=== PATIENT | male | born 1985 | race Caucasian/White ===

== ENCOUNTER 2017-02-20 11:59 | Emergency (ER) | payer OTHER ==
[~2017-02-20] VITALS: Ht 182.9 cm; Wt 101.4 kg
[2017-02-20 12:22] VITALS: BP 133/77; PULSE 110; RESP 20; TEMP 100.3; O2SAT 97
[2017-02-20 13:16] VITALS: TEMP 102.8
[2017-02-20 13:40] VITALS: BP 146/76; PULSE 108; RESP 16; O2SAT 95
--- NOTE | 2017-02-20 13:43 | PD ---
HPI Chief Complaint: Lump, Cyst, Hernia Time Seen by Provider: 13:25 Travel History International Travel<30 days: No Contact w/Intl Traveler<30days: No Traveled to known affect area: No History of Present Illness HPI 3 DAYS NOTED A RIGHT THIGH LUMP, WORSENING, MORE PAINFUL AND LARGER SIZE, 8/10, NONRAD, SOME REDNESS TO SKIN OVER IT....DENIES FEVER/N/V/D/CP/KUMARI/MYALGIA...also denies any injury to area PCP sarkis HAUSER DENIES PMHX PFSH Past Medical History Medical History: Denies Significant Hx Immunizations Current: Yes Influenza Vaccination: No Past Surgical History Surgical History: No Previous Surgery Social History Alcohol Use: Yes (ALMOST DAILY WHISKEY) Tobacco Use: No (NEVER) Substance Use: No Allergies-Medications (Allergen,Severity, Reaction): Coded Allergies: No Known Allergies (Unverified , 02/20/17) Reported Meds & Prescriptions Reported Meds & Active Scripts Active No Active Prescriptions or Reported Medications Review of Systems Except as stated in HPI: all other systems reviewed are Neg General / Constitutional: No: Fever Eyes: No: Visual changes HENT: No: Headaches Cardiovascular: No: Chest Pain or Discomfort Respiratory: No: Shortness of Breath Gastrointestinal: No: Abdominal Pain Genitourinary: No: Dysuria Musculoskeletal: No: Pain Skin: Positive Lumps Neurologic: No: Weakness Psychiatric: No: Depression Endocrine: No: Polydipsia Hematologic/Lymphatic: No: Easy Bruising Physical Exam Narrative GENERAL: SKIN: Warm and dry. HEAD: Atraumatic. Normocephalic. EYES: Pupils equal and round. No scleral icterus. No injection or drainage. ENT: No nasal bleeding or discharge. Mucous membranes pink and moist. NECK: Trachea midline. No JVD. CARDIOVASCULAR: Regular rate and rhythm. RESPIRATORY: No accessory muscle use. Clear to auscultation. Breath sounds equal bilaterally. GASTROINTESTINAL: Abdomen soft, non-tender, nondistended. MUSCULOSKELETAL: Extremities without clubbing, cyanosis, or edema. No obvious deformities. palpable mass 6x3cm, firm, indurated, nonfluctuant south of right femoral triangle, nonpulsatile NEUROLOGICAL: Awake and alert. No obvious cranial nerve deficits. Motor grossly within normal limits. Five out of 5 muscle strength in the arms and legs. Normal speech. PSYCHIATRIC: Appropriate mood and affect; insight and judgment normal. Data Data Last Documented VS Vital Signs Date Time Temp Pulse Resp B/P (MAP) Pulse Ox O2 Delivery O2 Flow Rate FiO2 02/20/17 14:45 102.0 98 16 151/83 (105) 97 Room Air Orders Orders Complete Blood Count With Diff (02/20/17 13:31) Comprehensive Metabolic Panel (02/20/17 13:31) Blood Culture (02/20/17 13:31) Westergren Sedimentation Rate (02/20/17 13:31) Lactic Acid Sepsis Protocol (02/20/17 13:31) Clindamycin 900 Mg Premix (Cleocin 900 M (02/20/17 13:45) Sodium Chlor 0.9% 1000 Ml Inj (Ns 1000 M (02/20/17 13:45) Ct Femur W Iv Contrast (02/20/17 ) Iohexol 350 Inj (Omnipaque 350 Inj) (02/20/17 14:21) Ibuprofen (Motrin) (02/20/17 14:45) Labs Laboratory Tests Test 02/20/17 13:35 White Blood Count 8.4 TH/MM3 Red Blood Count 5.08 MIL/MM3 Hemoglobin 14.0 GM/DL Hematocrit 42.1 % Mean Corpuscular Volume 82.9 FL Mean Corpuscular Hemoglobin 27.5 PG Mean Corpuscular Hemoglobin Concent 33.2 % Red Cell Distribution Width 12.8 % Platelet Count 170 TH/MM3 Mean Platelet Volume 8.2 FL Neutrophils (%) (Auto) 70.6 % Lymphocytes (%) (Auto) 16.4 % Monocytes (%) (Auto) 11.3 % Eosinophils (%) (Auto) 1.4 % Basophils (%) (Auto) 0.3 % Neutrophils # (Auto) 6.0 TH/MM3 Lymphocytes # (Auto) 1.4 TH/MM3 Monocytes # (Auto) 0.9 TH/MM3 Eosinophils # (Auto) 0.1 TH/MM3 Basophils # (Auto) 0.0 TH/MM3 CBC Comment DIFF FINAL Differential Comment Erythrocyte Sedimentation Rate 10 mm/hr Blood Urea Nitrogen 10 MG/DL Creatinine 0.94 MG/DL Random Glucose 81 MG/DL Total Protein 7.6 GM/DL Albumin 3.8 GM/DL Calcium Level 8.6 MG/DL Alkaline Phosphatase 96 U/L Aspartate Amino Transf (AST/SGOT) 35 U/L Alanine Aminotransferase (ALT/SGPT) 65 U/L Total Bilirubin 0.7 MG/DL Sodium Level 131 MEQ/L Potassium Level 4.1 MEQ/L Chloride Level 97 MEQ/L Carbon Dioxide Level 27.8 MEQ/L Anion Gap 6 MEQ/L Estimat Glomerular Filtration Rate 94 ML/MIN Lactic Acid Level 1.1 mmol/L MDM Medical Decision Making Medical Screen Exam Complete: Yes Emergency Medical Condition: Yes Medical Record Reviewed: Yes Differential Diagnosis abscess v pseudoaneurysm v cellulitis v lymphoma Narrative Course no leukocytosis, but pt was febrile, ct does not show any vascular involvement and appears to be most consistent with an enlarged lymph node...advised patient will give abx but will need follow up and possibly a needle or formal biopsy by [facility] Diagnosis Primary Impression: right thigh mass Patient Instructions: General Instructions, Soft Tissue Mass (ED) Additional Instructions: please make followup with [facility] to further investigate this mass in your thigh, about 4.5cm in size, not involving your artery or vein at this point but has smaller lymph nodes enlarged. most consistent with a lymph node and will need further investigation to ensure it is not lymphoma. in the mean time you will be treated with antibiotic to see if it is related to infection. Scripts Tramadol (Ultram) 50 Mg Tab 50 MG PO Q6H Y for PAIN, #12 TAB 0 Refills Prov: Christopher Myers MD 02/20/17 Amoxicillin-Clavulanate (Augmentin) 875-125 Mg Tab 1 TAB PO BID for Infection for 10 Days, #20 TAB 0 Refills Prov: Christopher Myers MD 02/20/17 Disposition: 01 DISCHARGE HOME Condition: Stable Christopher Myers MD Feb 20, 2017 13:43
[2017-02-20] MEDS ORDERED: SODIUM CHLOR 0.9% 1000 ML INJ 1,000 ML IV ONE (13:45)
[2017-02-20] MEDS ORDERED: CLINDAMYCIN 900 MG PREMIX 50 ML IV ONE (13:45)
[2017-02-20 13:55] LABS: BASOPHIL % 0.3 % (0.0-2.0); EOSINOPHIL # 0.1 TH/MM3 (0-0.4); EOSINOPHIL % 1.4 % (0.0-4.0); HEMATOCRIT 42.1 % (39.0-51.0); HEMO FLAGS DIFF FINAL; LYMPH % 16.4 % (9.0-44.0); LYMPHOCYTE # 1.4 TH/MM3 (1.0-4.8); MEAN CELL VOLUME 82.9 FL (80.0-100.0); MEAN CORPUSCULAR HEMOGLOBIN 27.5 PG (27.0-34.0); MEAN CORPUSCULAR HGB CONC 33.2 % (32.0-36.0); MONO % 11.3 % (0.0-8.0); NEUT % 70.6 % (16.0-70.0); PLATELET COUNT 170 TH/MM3 (150-450); RED BLOOD COUNT 5.08 MIL/MM3 (4.50-5.90); RED CELL DISTRIBUTION WIDTH 12.8 % (11.6-17.2); WHITE BLOOD COUNT 8.4 TH/MM3 (4.0-11.0)
[2017-02-20 14:14] LABS: CHLORIDE 97 MEQ/L (98-107); POTASSIUM 4.1 MEQ/L (3.5-5.1); SODIUM (NA) 131 MEQ/L (136-145)
[2017-02-20 14:17] LABS: ANION GAP 6 MEQ/L (5-15); BICARBONATE 27.8 MEQ/L (21.0-32.0); BLOOD UREA NITROGEN 10 MG/DL (7-18)
[2017-02-20 14:20] LABS: ALT (GPT) 65 U/L (12-78); AST (GOT) 35 U/L (15-37)
[2017-02-20 14:21] LABS: GLOMERULAR FILTRATION RATE 94 ML/MIN (>89)
[2017-02-20] MEDS ORDERED: IOHEXOL 350 MG/ML 10 ML VIAL (for RAD DIAG) IVCONTRAST ONE (14:21)
[2017-02-20 14:22] LABS: TOTAL BILIRUBIN ADULT 0.7 MG/DL (0.2-1.0)
[2017-02-20 14:23] LABS: ALKALINE PHOSPHATASE 96 U/L (45-117)
[2017-02-20 14:45] VITALS: BP 151/83; PULSE 98; RESP 16; TEMP 102; O2SAT 97
[2017-02-20] MEDS ORDERED: IBUPROFEN 800 MG TAB PO ONE (14:45)
--- NOTE | 2017-02-20 15:06 | RADRPT ---
EXAM DATE/TIME: 02/20/2017 14:10 [facility] COMPARISON: No previous studies available for comparison. INDICATIONS : Lump and pain in right femoral triangle area. IV CONTRAST: 95 cc Omnipaque 350 (iohexol) IV RADIATION DOSE: 14.10 CTDIvol (mGy) MEDICAL HISTORY : None SURGICAL HISTORY : None. ENCOUNTER: Initial ACUITY: 1 week PAIN SCALE: 5/10 LOCATION: Right femur TECHNIQUE: Volumetric scanning of the femur was performed. Using automated exposure control and adjustment of t he mA and/or kV according to patient size, radiation dose was kept as low as reasonably achievable to obtain optimal diagnostic quality images. DICOM format image data is available electronically for review and comparison. FINDINGS: [id number] the examination includes the right leg from knee to inguinal region. There is a 4.5 cm oval soft tissue mass in the right inguinal region and several adjacent smaller masses which measure between 11 and 16 mm, having the appearance consist with multiple enlarged nodes. There is some ind uration of the fat adjacent to these enlarged nodes. The musculature of the thigh is normal in confi guration. Femur and acetabulum have a normal appearance. CONCLUSION: Right inguinal masses measuring up to 4.5 cm. Rolly Flores MD on February 20, 2017 at 15:01 Board Certified Radiologist. This report was verified electronically.
[2017-02-20] MEDS ORDERED: AUGM875T3 PO (15:17)
[2017-02-20] MEDS ORDERED: TRAM50 PO (15:17)
[2017-02-20 15:40] VITALS: BP 119/70; PULSE 98; RESP 16; O2SAT 96
[2017-02-20 16:10] VITALS: BP 115/65; PULSE 98; RESP 16; O2SAT 98
== END 2017-02-20 16:54 | disposition home or self-care (01) ==
LOC: PHED 11:59
DX: R22.41 Localized swelling, mass and lump, right lower limb (principal)
CPT/HCPCS: 73701; 80053; 83605; 85025; 85652; 87040; 96365; 99285; J7030; Q9967

== ENCOUNTER 2017-06-28 18:50 | Emergency (ER) | payer OTHER ==
[~2017-06-28 18:50] MED LIST: AUGM875T3 PO; TRAM50 PO
[2017-06-28 19:10] VITALS: BP 151/90; PULSE 109; RESP 20; TEMP 99.1; O2SAT 96
[2017-06-28] MEDS ORDERED: NAPR500T2 PO (19:46)
--- NOTE | 2017-06-28 20:13 | PD ---
HPI Chief Complaint: Musculoskeletal Complaint Time Seen by Provider: 20:01 Travel History International Travel<30 days: No Contact w/Intl Traveler<30days: No Traveled to known affect area: No History of Present Illness HPI 31-year-old male complains of left knee pain and swelling and left leg swelling. Patient states that he was running and started having left knee pain about 6 weeks ago. Patient was seen at local [facility] a week after that and an x-ray of the left knee was negative acute bony injury. Patient was given prescription for Naprosyn. Patient states that he had persistent left knee pain despite taking the medication. Patient noticed increasing swelling the left knee today and swelling of the left lower leg. Patient denies any chest pain or shortness of breath. Patient denies any history of DVT or PE. Patient states the pain is sharp pain localized to the left knee. Patient states that the pain on the left lower leg is aching pain mostly around the calf area. Patient denies any fever chills. PFSH Past Medical History Diminished Hearing: No Respiratory: Yes (PNEUMONIA) Immunizations Current: Yes Social History Alcohol Use: Yes (ALMOST DAILY WHISKEY) Tobacco Use: No (NEVER) Substance Use: No Allergies-Medications (Allergen,Severity, Reaction): Coded Allergies: No Known Allergies (Unverified , 02/20/17) Reported Meds & Prescriptions Reported Meds & Active Scripts Active Reported Naproxen 500 Mg Tab 500 Mg PO BID Review of Systems General / Constitutional: No: Fever Eyes: No: Visual changes HENT: No: Headaches Cardiovascular: No: Chest Pain or Discomfort Respiratory: No: Shortness of Breath Gastrointestinal: No: Abdominal Pain Genitourinary: No: Dysuria Musculoskeletal: Positive: Pain Skin: No Rash Neurologic: No: Weakness Psychiatric: No: Depression Endocrine: No: Polydipsia Hematologic/Lymphatic: No: Easy Bruising Physical Exam Narrative GENERAL: Well-nourished, well-developed patient. SKIN: Focused skin assessment warm/dry. HEAD: Normocephalic. EYES: No scleral icterus. No injection or drainage. NECK: Supple, trachea midline. No JVD or lymphadenopathy. CARDIOVASCULAR: Regular rate and rhythm without murmurs, gallops, or rubs. RESPIRATORY: Breath sounds equal bilaterally. No accessory muscle use. GASTROINTESTINAL: Abdomen soft, non-tender, nondistended. MUSCULOSKELETAL: No cyanosis, or edema. BACK: Nontender without obvious deformity. No CVA tenderness. Examination of the left knee shows mild effusion. Full range of motion of the left knee. Knee joint stable. No redness no heat noted. Mild edema on the left lower leg. Mild tenderness on palpation of left calf. No heat noted. No redness noted. Negative Homans sign. Data Data Last Documented VS Vital Signs Date Time Temp Pulse Resp B/P (MAP) Pulse Ox O2 Delivery O2 Flow Rate FiO2 06/28/17 19:45 2 06/28/17 19:10 99.1 109 151/90 (110) 96 Orders Orders Knee, Complete (4vws) (06/28/17 20:08) Us Leg Venous Doppler (06/28/17 20:08) MDM Medical Decision Making Medical Screen Exam Complete: Yes Emergency Medical Condition: Yes Interpretation(s) Last Impressions Lower Extremity Ultrasound 06/28/172007 Signed Impressions: Service Date/Time: Wednesday, June 28, 2017 21:29 - CONCLUSION: Normal examination. Frank Muñoz MD Knee X-Ray 06/28/172007 Signed Impressions: Service Date/Time: Wednesday, June 28, 2017 20:48 - CONCLUSION: 1. There is mild osteoarthritis and a small joint effusion. No acute fracture. Frank Muñoz MD Differential Diagnosis Differential diagnosis including ligament injury, DVT. Narrative Course 31-year-old male with increase in pain swelling of the left knee and swelling of left lower leg. Original injury was 6 weeks ago. Diagnosis Primary Impression: Injury of ligament of left knee Qualified Codes: S89.92XA - Unspecified injury of left lower leg, initial encounter Patient Instructions: General Instructions Additional Instructions: Blaine wrap left knee. Take medication as needed for pain. Follow up with an orthopedist. Med/Other Pt SpecificInfo: Prescription(s) given Scripts Meloxicam (Mobic) 15 Mg Tab 15 MG PO DAILY for Pain, #30 TAB 0 Refills Prov: Jesse Seymour MD 06/28/17 Disposition: 01 DISCHARGE HOME Condition: Stable Jesse Seymour MD Jun 28, 2017 20:13
--- NOTE | 2017-06-28 21:33 | RADRPT ---
EXAM DATE/TIME: 06/28/2017 20:48 [facility] COMPARISON: No previous studies available for comparison. INDICATIONS : Left knee pain for over one month. Patient states his knee has been swelling and painful after going for a run six weeks ago. MEDICAL HISTORY : None. SURGICAL HISTORY : None. ENCOUNTER: Initial ACUITY: 1 month PAIN SCORE: 6/10 LOCATION: Left knee. FINDINGS: There is mild osteoarthritis and small joint effusion. No acute fracture or dislocation. CONCLUSION: 1. There is mild osteoarthritis and a small joint effusion. No acute fracture. Frank Muñoz MD on June 28, 2017 at 21:29 Board Certified Radiologist. This report was verified electronically.
--- NOTE | 2017-06-28 22:05 | RADRPT ---
EXAM DATE/TIME: 06/28/2017 21:29 [facility] COMPARISON: No previous studies available for comparison. INDICATIONS : Left leg swelling. MEDICAL HISTORY : Pneumonia. Alcohol use. SURGICAL HISTORY : None. ENCOUNTER: Initial ACUITY: 1 day PAIN SCORE: 2/10 LOCATION: Left leg. TECHNIQUE: Venous ultrasound of the leg was performed from the inguinal ligament to the proximal calf. Real-lashonda e, color Doppler and spectral tracing, compression and augmentation techniques were used. FINDINGS: There is normal compressibility of the deep venous system from the inguinal region to the proximal ca lf. No echogenic clot is seen in the lumen of the common femoral, femoral, popliteal, and posterior tibial veins. There is a normal response of the venous system to proximal and distal augmentation an d respiration. CONCLUSION: Normal examination. Frank Muñoz MD on June 28, 2017 at 22:02 Board Certified Radiologist. This report was verified electronically.
[2017-06-28] MEDS ORDERED: MOBI15TA PO (22:53)
[2017-06-28 23:26] VITALS: BP 142/79
== END 2017-06-28 23:29 | disposition home or self-care (01) ==
LOC: PHED 18:50
DX: S89.92XA Unspecified injury of left lower leg, initial encounter (principal); Y93.02 Activity, running; Z79.899 Other long term (current) drug therapy
CPT/HCPCS: 73564; 93971; 99284